=== PATIENT | male | born 1990 | race Caucasian/White ===

== ENCOUNTER 2021-06-17 14:26 | Emergency (ER) | payer MEDICAID ==
[~2021-06-17] VITALS: Ht 185.4 cm; Wt 84.1 kg
[2021-06-17 15:00] VITALS: BP 147/98
[2021-06-17] MEDS ORDERED: CefTRIAXone 1000mg IM Kit (w/lidocaine diluent) IM STA (15:09)
[2021-06-17] MEDS ORDERED: azithromycin 250mg tablet PO ONE (15:10)
[2021-06-17 16:19] LABS: CLARITY,URINE SLIGHTLY CLOUDY (Clear); COLOR,URINE YELLOW (Yellow); GLUCOSE, URINE NEGATIVE (Neg); KETONES,URINE NEGATIVE (Neg); LEUKOCYTE ESTERASE ,URINE SMALL (Neg); NITRITES, URINE NEGATIVE (Neg); OCCULT BLOOD,URINE NEGATIVE (Neg); PROTEIN,URINE NEGATIVE (Neg); UROBILINOGEN,URINE 0.2 E.U/dL (0.2-1.0)
[2021-06-17 16:28] LABS: UA COLLECTION TYPE VOIDED
[2021-06-17 16:29] LABS: MUCUS STRANDS FEW /LPF (Neg); SQUAMOUS EPITHELIAL CELL,UR FEW /LPF (FEW); WBC CLUMPS,URINE MANY /HPF (NEGATIVE)
[2021-06-17 16:30] LABS: BACTERIA,URINE FEW /HPF (Neg); RBC,URINE 0-2 /HPF (0-2)
[2021-06-17] MEDS ORDERED: NITR100C6 PO (16:45)
== END 2021-06-17 17:05 | disposition home or self-care (01) ==
LOC: ER 14:27
DX: A64 Unspecified sexually transmitted disease (principal); R30.9 Painful micturition, unspecified; Z79.899 Other long term (current) drug therapy
CPT/HCPCS: 36415; 81001; 87491; 87591; 96372; 99283; J0696

== ENCOUNTER → 2021-07-14 | Emergency (ER) | payer MEDICAID ==
[~2021-07-14] VITALS: Ht 185.4 cm; Wt 84.2 kg
[~2021-07-14] MED LIST: NITR100C6 PO
[2021-07-14 11:22] VITALS: BP 139/93
[2021-07-14 12:39] LABS: CLARITY,URINE CLEAR (Clear); COLOR,URINE YELLOW (Yellow); UA COLLECTION TYPE CLN CATCH MIDSTREAM
[2021-07-14 12:40] LABS: GLUCOSE, URINE NEGATIVE (Neg); KETONES,URINE NEGATIVE (Neg); LEUKOCYTE ESTERASE ,URINE NEGATIVE (Neg); NITRITES, URINE NEGATIVE (Neg); OCCULT BLOOD,URINE NEGATIVE (Neg); PROTEIN,URINE NEGATIVE (Neg); UROBILINOGEN,URINE 0.2 E.U/dL (0.2-1.0)
== END | disposition home or self-care (01) ==
LOC: ER 11:09
DX: N50.819 Testicular pain, unspecified (principal); Z79.899 Other long term (current) drug therapy
CPT/HCPCS: 76870; 81003; 93976; 99284

== ENCOUNTER 2021-08-13 12:36 | Emergency (ER) | payer MEDICAID ==
[~2021-08-13] VITALS: Ht 185.4 cm; Wt 83.6 kg
[2021-08-13 13:25] LABS: CLARITY,URINE CLOUDY (Clear); COLOR,URINE YELLOW (Yellow); GLUCOSE, URINE NEGATIVE (Neg); KETONES,URINE NEGATIVE (Neg); LEUKOCYTE ESTERASE ,URINE NEGATIVE (Neg); NITRITES, URINE NEGATIVE (Neg); OCCULT BLOOD,URINE NEGATIVE (Neg); PROTEIN,URINE NEGATIVE (Neg); UA COLLECTION TYPE CLN CATCH MIDSTREAM; UROBILINOGEN,URINE 0.2 E.U/dL (0.2-1.0)
[2021-08-13 13:31] LABS: BACTERIA,URINE 1+ /HPF (Neg); MUCUS STRANDS MANY /LPF (Neg); RBC,URINE 0-2 /HPF (0-2); SQUAMOUS EPITHELIAL CELL,UR FEW /LPF (FEW); WBC,URINE 0-4 /HPF (0-4)
[2021-08-13 15:06] VITALS: BP 124/91
[2021-08-13] MEDS ORDERED: CefTRIAXone 1000mg IM Kit (w/lidocaine diluent) IM STA (15:13)
[2021-08-13] MEDS ORDERED: azithromycin 250mg tablet PO ONE (15:15)
== END 2021-08-13 16:16 | disposition home or self-care (01) ==
LOC: ER 12:37
DX: A64 Unspecified sexually transmitted disease (principal); R30.9 Painful micturition, unspecified; N48.89 Other specified disorders of penis; N39.0 Urinary tract infection, site not specified; Z79.899 Other long term (current) drug therapy
CPT/HCPCS: 36415; 81001; 87491; 87591; 96372; 99283; J0696

== ENCOUNTER 2021-10-21 16:56 | Emergency (ER) | payer MEDICAID | END 2021-10-21 17:47 | disposition left against medical advice (07) | LOC: ER 16:56 | DX: N39.0 Urinary tract infection, site not specified (principal); Z53.21 Procedure and treatment not carried out due to patient leaving prior to being seen by health care provider ==

== ENCOUNTER 2021-10-23 08:05 | Emergency (ER) | payer MEDICAID ==
[~2021-10-23] VITALS: Ht 185.4 cm; Wt 83.0 kg
[2021-10-23 08:09] VITALS: BP 146/98
[2021-10-23 08:33] LABS: CLARITY,URINE CLEAR (Clear); COLOR,URINE YELLOW (Yellow); GLUCOSE, URINE NEGATIVE (Neg); KETONES,URINE NEGATIVE (Neg); LEUKOCYTE ESTERASE ,URINE NEGATIVE (Neg); NITRITES, URINE NEGATIVE (Neg); OCCULT BLOOD,URINE NEGATIVE (Neg); PROTEIN,URINE NEGATIVE (Neg); UROBILINOGEN,URINE 0.2 E.U/dL (0.2-1.0)
[2021-10-23 08:50] LABS: UA COLLECTION TYPE CLN CATCH MIDSTREAM
[2021-10-23] MEDS ORDERED: azithromycin 250mg tablet PO ONE (09:05)
[2021-10-23] MEDS ORDERED: CefTRIAXone 500MG IM Kit w/LIDOcaine IM ONE (09:05)
[2021-10-23] MEDS ORDERED: CefTRIAXone 1000mg IM Kit (w/lidocaine diluent) IM ONE (09:20)
== END 2021-10-23 10:34 | disposition home or self-care (01) ==
LOC: ER 08:06
DX: N34.2 Other urethritis (principal); Z87.891 Personal history of nicotine dependence; Z79.899 Other long term (current) drug therapy
CPT/HCPCS: 81003; 96372; 99283; J0696

== ENCOUNTER 2022-04-17 07:28 | Emergency (ER) | payer MEDICAID ==
[~2022-04-17] VITALS: Ht 185.4 cm; Wt 81.8 kg
[2022-04-17 07:36] VITALS: BP 125/73
[2022-04-17] MEDS ORDERED: benzonatate 100mg capsule PO ONE (08:05)
[2022-04-17] MEDS ORDERED: acetaminophen 325mg tablet PO ONE (08:05)
[2022-04-17] MEDS ORDERED: ibuprofen tablet 400 MG TABLET PO ONE (08:05)
[2022-04-17] MEDS ORDERED: BENZ-38 PO (09:37)
== END 2022-04-17 10:18 | disposition home or self-care (01) ==
LOC: ER 07:29
DX: R05.9 Cough, unspecified (principal); Z20.822 Contact with and (suspected) exposure to COVID-19; R51.9 Headache, unspecified; R09.89 Other specified symptoms and signs involving the circulatory and respiratory systems; Z79.899 Other long term (current) drug therapy
CPT/HCPCS: 87635; 99284; C9803